=== PATIENT | male | born 1985 | race Caucasian/White ===

== ENCOUNTER 2016-09-28 15:23 | Emergency (ER) | payer OTHER ==
[~2016-09-28] VITALS: Ht 175.3 cm; Wt 81.6 kg
--- NOTE | 2016-09-28 16:12 | ED GENERAL ADULT ---
History of Present Illness General Chief Complaint: Eye Problems Stated Complaint: LAC TO L EYE Source: patient Exam Limitations: no limitations Vital Signs & Intake/Output Vital Signs & Intake/Output Vital Signs Date Time Temp Pulse Resp B/P Pulse O2 O2 Flow FiO2 Ox Delivery Rate 09/28 1653 66 18 128/66 98 Room Air 09/28 1620 Room Air 09/28 1542 97.1 59 18 131/73 99 Room Air Allergies Uncoded Allergies: Allergy Other NKA Med Allergies NKA Triage Note: PT TO ED FOR SMALL LAC TO L EYEBROW. STATES HE GOT IT WHILE DOING [email or web address] TODAY. LAST TETANUS SHOT APPROX 1 YEAR AGO. NO BLEEDING IN TRIAGE. Triage Nurses Notes Reviewed? yes Onset: Just prior to arrival Duration: hour(s): (1) Timing: no prior history Injury Environment: home Severity: mild Severity Numbers: 4 No Modifying Factors: none HPI: Patient is a 31-year-old male presenting to the emergency department with chief complaint of laceration over left eye. He reports that he was at [employer] [place] and accidentally bumped heads with another person. No LOC. Denies headaches or visual changes. No dizziness. He reports that he noticed the laceration was continuously bleeding so he decided to come in for evaluation. Up-to-date with tetanus immunization. No other injury. Denies numbness or tingling. (GEOVANNI MENCHACA) Past History Travel History Traveled to [place] past 21 day No Medical History Any Pertinent Medical History? see below for history Neurological: NONE EENT: NONE Cardiovascular: NONE Respiratory: NONE Gastrointestinal: NONE Hepatic: NONE Renal: NONE Musculoskeletal: NONE Psychiatric: NONE Endocrine: NONE Blood Disorders: NONE Cancer(s): NONE Surgical History Surgical History: non-contributory Psychosocial History What is your primary language Gambian Tobacco Use: Never used ETOH Use: denies use Illicit Drug Use: denies illicit drug use Family History Hx Contributory? No (GEOVANNI MENCHACA) Review of Systems Review of Systems Constitutional: Reports: no symptoms. Comments Review of systems: See HPI, All other systems negative. Constitutional, no chills fever or weight loss HEENT: No visual changes no sore throat no congestion Cardiovascular: No chest pain ,palpitation , orthopnea or ankle swelling Skin, no jaundice no rashes Respiratory: No dyspnea cough sputum or hemoptysis GI: No nausea no vomiting : No dysuria No hematuria Muscle skeletal: no back pain, no neck pain, Neurologic: No numbness no confusion Psych: No stress anxiety or depression,. Heme/endocrine: No bruising no bleeding no polyuria or polydipsia Immunology: No splenectomy or history of AIDS (GEOVANNI MENCHACA) Physical Exam Physical Exam General Appearance: well developed/nourished, no apparent distress, alert, awake , comfortable Comments: Well-developed well-nourished person in no acute distress HEENT: extraocular motion intact, no nystagmus. Pupils equally round and reactive to light and accommodation. Nose is atraumatic. Neck: C-spine tenderness, full range of motion Back: Nontender, no CVA tenderness. Full range of motion Cardiovascular: Regular rate and rhythms no murmurs rubs or gallops, normal JVP Respiratory: Chest nontender. No respiratory distress.breath sounds clear to auscultation bilaterally Extremity: No edema Neuro: Alert oriented x3, motor sensory normal, cranial nerves II through XII grossly intact. Skin: 3 cm linear well approximated laceration noted over the left eyebrow, no active bleeding. Nontender to palpation. No surrounding erythema or edema. No foreign bodies. Discussed to the lateral aspect of the left eyebrow. Subcutaneous laceration. Psych: Mood and affect is normal, memory and judgment is normal. Core Measures ACS in differential dx? No CVA/TIA Diagnosis: No Severe Sepsis Present: No Septic Shock Present: No (GEOVANNI MENCHACA) Progress Differential Diagnoses I considered the following diagnoses in my evaluation of the patient: Laceration, abrasion, contusion, minor head injury, concussion Plan of Care: Patient declined pain medication. We will suture the laceration after extensive urination and Betadine prep. Initial ED EKG: none (GEOVANNI MENCHACA) Departure Departure Time of Disposition: 1624 Disposition: HOME OR SELF CARE Condition: Stable Clinical Impression Primary Impression: Laceration Secondary Impressions: Minor head injury Qualifiers: Encounter type: initial encounter Qualified Code: S00.90XA - Unspecified superficial injury of unspecified part of head, initial encounter Referrals: JULIAN RODRIGUEZ,NICK Burnett (PCP/Family) Additional Instructions: Return in 7 days for suture removal. Keep wound clean and dry. Return sooner if he develop any visual changes, fevers, increased swelling or pain to the laceration site or concerns. Take [id number] Motrin and Tylenol as directed for any aches or pains. Departure Forms: Customer Survey General Discharge Information (GEOVANNI MENCHACA) PA/DIGITAL CARTOGRAPHER Co-Sign Statement Statement: ED Attending supervision documentation- [] I saw and evaluated the patient. I have also reviewed all the pertinent lab results and diagnostic results. I agree with the findings and the plan of care as documented in the PA's/DIGITAL CARTOGRAPHER's documentation. [X] I have reviewed the ED Record and agree with the PA's/DIGITAL CARTOGRAPHER's documentation. [] Additions or exceptions (if any) to the PAs/DIGITAL CARTOGRAPHER's note and plan are summarized below: [] (RADHA RODRIGUEZ,JUNITO Alexandre) Procedures Laceration/Wound Repair Laceration/Wound Repair: Wound Location: face Wound's Depth, Shape: linear, subcutaneous Wound Length (cm): 3 Wound Explored: clean, no foreign body removed, irrigated extensively Irrigated w/ Saline (ccs): 1000 Betadine Prep? Yes Anesthesia: 1% lidocaine Volume Anesthetic (ccs): 3 Wound Debrided: minimal Wound Repaired With: sutures Suture Size/Type: 5:0, nylon Number of Sutures: 6 Layer Closure? No Tetanus Status: up to date Progress: Patient tolerated procedure well. (GEOVANNI MENCHACA) Critical Care Note Critical Care Note Critical Care Time: non-applicable (GEOVANNI MENCHACA)
[2016-09-28 16:53] VITALS: BP 128/66
== END 2016-09-28 16:54 ==
LOC: ERH 15:23
DX: S01.91XA Laceration without foreign body of unspecified part of head, initial encounter (principal); S09.90XA Unspecified injury of head, initial encounter; W51.XXXA Accidental striking against or bumped into by another person, initial encounter; Y93.75 Activity, martial arts; Y92.9 Unspecified place or not applicable